=== PATIENT | female | born 1990 | race Caucasian/White ===

== ENCOUNTER 2017-07-16 09:16 | Emergency (ER) | payer MEDICAID ==
[~2017-07-16] VITALS: Ht 157.5 cm; Wt 59.0 kg
[~2017-07-16 09:16] MED LIST: PREN-129
[2017-07-16 09:59] LABS: Hematocrit 37.7 % (36.0-46.0); Hemoglobin 12.6 g/dL (12.2-16.2)
[2017-07-16 10:16] LABS: Urine Bilirubin Negative (Negative); Urine Blood 2+ /uL (Negative); Urine Color Yellow (Yellow); Urine Glucose Normal (Normal); Urine Ketone Negative (Negative); Urine Mucus FEW (None Seen); Urine Nitrite Negative (Negative); Urine RBC 4 /hpf (0 - 4); Urine Squamous Epithelial Cell FEW /hpf (<5); Urine Urobilinogen Normal (Negative); Urine pH 6.5 (5.0-8.0)
[2017-07-16 14:22] VITALS: BP 125/85
== END 2017-07-16 15:10 | disposition home or self-care (01) ==
LOC: ER 09:16
DX: O20.0 Threatened abortion (principal); O23.41 Unspecified infection of urinary tract in pregnancy, first trimester; Z3A.01 Less than 8 weeks gestation of pregnancy
CPT/HCPCS: 36415; 76801; 76817; 81001; 84702; 85014; 85018

== ENCOUNTER 2023-07-13 20:17 | Emergency (ER) | payer MEDICAID ==
[~2023-07-13] VITALS: Ht 157.5 cm; Wt 59.8 kg
[2023-07-13] MEDS ORDERED: FAMOTIDINE 20 MG TAB PO ONE (21:45)
[2023-07-13] MEDS ORDERED: ALBUTEROL MEDNEB 2.5 mg/3ml NEB NEB ONE (21:45)
[2023-07-13] MEDS ORDERED: IPRATROPIUM BROM 0.5 MG/2.5ML INH SOL NEB ONE (21:45)
[2023-07-13] MEDS ORDERED: diphenhdrAMINE HCL 50 MG/1 ML VL IM ONE (21:45)
[2023-07-13] MEDS ORDERED: DexAMETHasone SOD PHOS 10MG/1ML VIAL INJ IM ONE (21:45)
[2023-07-13] MEDS ORDERED: guaiFENesin-CODEINE Liq 5 ML UD PO ONE (21:45)
[2023-07-13] MEDS ORDERED: ALBUTEROL MEDNEB 2.5 mg/3ml NEB ONE (21:55)
[2023-07-13] MEDS ORDERED: IPRATROPIUM BROM 0.5 MG/2.5ML INH SOL ONE (21:55)
[2023-07-13] MEDS ORDERED: TETANUS-DIPTH-ACEL PERTUSSIS 0.5ML SYR Tdap IM ONE (22:00)
[2023-07-13] MEDS ORDERED: DOXY-346 PO (22:10)
[2023-07-13 23:00] VITALS: BP 116/58; PULSE 73; RESP 16; TEMP 98.1; O2SAT 100
== END 2023-07-13 22:11 | disposition home or self-care (01) ==
LOC: ER 20:17
DX: S61.412A Laceration without foreign body of left hand, initial encounter (principal); M19.90 Unspecified osteoarthritis, unspecified site; Z79.899 Other long term (current) drug therapy; W26.8XXA Contact with other sharp object(s), not elsewhere classified, initial encounter; Y93.89 Activity, other specified; Y92.89 Other specified places as the place of occurrence of the external cause; Y99.8 Other external cause status
CPT/HCPCS: 12001

== ENCOUNTER 2023-12-30 14:50 | Inpatient (IN) | payer MEDICAID ==
[~2023-12-30] VITALS: Ht 154.9 cm; Wt 65.8 kg
[~2023-12-30 14:50] MED LIST changes: +DOXY-346 PO
[2023-12-30 16:01] LABS: Basophils # (auto) 0.1 10 ^3/uL (0-0.2); Basophils % (auto) 0.5 % (0.0-2.0); Eosinophils # (auto) 0.1 10 ^3/uL (0-0.8); Eosinophils % (auto) 0.6 % (0.0-7.0); Hematocrit 37.5 % (36.0-46.0); Hemoglobin 12.4 g/dL (12.2-16.2); Lymphocytes # (auto) 1.9 10 ^3/uL (0.4-5.4); Lymphocytes % (auto) 18.3 % (10.0-50.0); Mean Corpuscular Hemoglobin 28.2 pg (28.0-32.0); Mean Corpuscular Hgb Conc. 33.2 g/dL (32.0-36.0); Mean Corpuscular Volume 84.9 fL (80.0-100.0); Monocytes # (auto) 0.4 10 ^3/uL (0-1.3); Monocytes % (auto) 3.9 % (0.0-12.0); Neutrophils # (auto) 8.1 10 ^3/uL (1.6-8.6); Neutrophils % (auto) 76.7 % (37.0-80.0); Nucleated Red Blood Cells % 0.1 %; Red Blood Cells 4.42 10^6/uL (4.0-5.20); Red Cell Distribution Width 14.2 % (11.8-14.3); White Blood Cell 10.6 10^3/uL (4.4-10.8)
[2023-12-30 16:16] LABS: Alanine Aminotransferase 10 U/L (7-40); Albumin 4.1 g/dL (3.2-4.8); Alkaline Phosphatase 77 U/L (46-116); Anion Gap 7 (5-15); Aspartate Aminotransferase 24 U/L (13-40); BUN/Creatinine Ratio 13.9 (10.0-20.0); Blood Urea Nitrogen 10 mg/dL (9-23); Calcium 9.1 mg/dL (8.5-10.1); Carbon Dioxide 27 mmol/L (20-30); Chloride 105 mmol/L (98-107); Glucose 100 mg/dL (74-106); Potassium 3.8 mmol/L (3.5-5.1); Sodium 139 mmol/L (136-145); Total Protein 7.4 g/dL (5.7-8.2)
[2023-12-30 16:17] LABS: Bilirubin, Total 0.2 mg/dL (0.2-1.0)
[2023-12-30 17:13] LABS: Urine Bacteria None Seen /hpf (None Seen)
[2023-12-30 17:42] LABS: Urine Amorphous Crystal FEW /hpf (None Seen); Urine Blood 3+ /uL (Negative); Urine Clarity Ex.Turbid (Clear); Urine Color Light-Brown (Yellow); Urine Mucus FEW (None Seen); Urine Protein, UAD TRACE (Negative); Urine Specific Gravity 1.021 (1.001-1.035); Urine Urobilinogen Normal (Negative); Urine WBC 32 /hpf (0 - 5); Urine WBC Clumps PRESENT /hpf (None Seen); Urine pH 6.5 (5.0-9.0)
[2023-12-30 18:00] LABS: INR 1.04 (0.9-1.15); Partial Thromboplastin Time 24.3 SEC (24.5-34.5)
[2023-12-30] MEDS ORDERED: HYDROmorphone HCL 2 MG/ML VL/or syr IV PRN ×4 (18:00→20:45)
[2023-12-30] MEDS ORDERED: ONDANSETRON HCL 4 MG/2 ML VIAL IV PRN ×3 (18:00→20:45)
[2023-12-30] MEDS ORDERED: LACTATED RINGER'S 1,000 ML IV ONE (18:00)
[2023-12-30] MEDS ORDERED: HYDROcodone-ACET 5/325MG TAB PO PRN (18:00)
[2023-12-30] MEDS ORDERED: DOCU-94 PO (18:30)
[2023-12-30] MEDS ORDERED: HYDR-4902 PO (18:30)
[2023-12-30] MEDS ORDERED: IBUP-1456 PO (18:30)
[2023-12-30] MEDS ORDERED: ZOFR4T PO (18:30)
[2023-12-30] MEDS: ceFAZolin 1GM/50ML 100 ML IV ONE (18:48)
[2023-12-30] MEDS: GABAPENTIN 400 MG CAP ONE (18:55)
[2023-12-30] MEDS: CELECOXIB 100 MG CAP ONE (18:55)
[2023-12-30] MEDS: ACETAMINOPHEN IV 100 ML IV ONE (18:55)
[2023-12-30] MEDS ORDERED: LIDOCAINE 2% (LOCAL ANESTH.) PF 5ml SDV ONE ×2 (18:58→19:13)
[2023-12-30] MEDS ORDERED: SUGAMMADEX 200mg/2ml Vial (100MG/ML) IV ONE (18:58)
[2023-12-30] MEDS ORDERED: KETAMINE 50mg/ML 1ml syringe ONE (18:59)
[2023-12-30] MEDS ORDERED: fentaNYL CITRATE 100 MCG/2 ML VL ONE (18:59)
[2023-12-30] MEDS: ACETAMINOPHEN IV 1000 MG/100ML (10MG/ML) IV ONE (19:00)
[2023-12-30] MEDS: CELECOXIB 100 MG CAP PO ONE (19:00)
[2023-12-30] MEDS: GABAPENTIN 400 MG CAP PO ONE (19:00)
[2023-12-30] MEDS ORDERED: ROCURONIUM 10MG/ML 10ML VIAL IV ONE (19:02)
[2023-12-30] MEDS ORDERED: PROPOFOL 10 MG/ML 20 ML IV ONE (19:13)
[2023-12-30] MEDS ORDERED: GLYCOPYRROLATE 0.2 MG/ML 1ML VIAL ONE (19:13)
[2023-12-30] MEDS ORDERED: KETOROLAC TROMETH 30 MG/ML 1ML VIAL ONE (19:13)
[2023-12-30] MEDS ORDERED: ONDANSETRON HCL 4 MG/2 ML VIAL ONE (19:13)
[2023-12-30] MEDS ORDERED: DexAMETHasone SOD PHOS 10MG/1ML VIAL INJ ONE (19:13)
[2023-12-30] MEDS: BUPIVACAINE 0.5% P/F INJ 10 ML VIAL ONE (20:05)
[2023-12-30] MEDS ORDERED: LACTATED RINGER'S 1,000 ML IV SCH (20:15)
[2023-12-30] MEDS ORDERED: RHO (D) IMMUNE GLOBULIN 300 MCG INJ IM PRN (20:15)
[2023-12-30] MEDS ORDERED: BISACODYL 10 MG RECT SUPP PR PRN (20:15)
[2023-12-30 20:22] VITALS: PULSE 73; RESP 13; O2SAT 100
[2023-12-30] MEDS ORDERED: fentaNYL CITRATE 100 MCG/2 ML VL IV PRN (20:45)
[2023-12-30] MEDS ORDERED: LABETALOL HCL 5 MG/ML 4ML SYRINGE IV PRN (20:45)
[2023-12-30] MEDS ORDERED: ePHEDrine SULFATE 50 MG/ML AMP IV PRN (20:45)
[2023-12-30] MEDS ORDERED: NALOXONE HCL 0.4 MG/ML VIAL IV PRN (20:45)
[2023-12-30] MEDS ORDERED: FLUMAZENIL 0.1 MG/ML INJ 10ML MDV IV PRN (20:45)
[2023-12-30] MEDS ORDERED: hydrALAZINE HCL 20 MG/ML VL IV PRN (20:45)
[2023-12-30] MEDS: oxyCODONE HCL 5MG TAB PO PRN (21:24)
[2023-12-30] MEDS ORDERED: ceFAZolin 1GM/50ML 50 ML IV SCH (22:00)
[2023-12-30 23:03] LABS: Basophils # (auto) 0 10 ^3/uL (0-0.2); Basophils % (auto) 0.2 % (0.0-2.0); Eosinophils # (auto) 0 10 ^3/uL (0-0.8); Hemoglobin 11.5 g/dL (12.2-16.2); Lymphocytes # (auto) 0.8 10 ^3/uL (0.4-5.4); Lymphocytes % (auto) 6.7 % (10.0-50.0); Mean Corpuscular Hemoglobin 27.8 pg (28.0-32.0); Mean Corpuscular Hgb Conc. 32.8 g/dL (32.0-36.0); Mean Corpuscular Volume 84.5 fL (80.0-100.0); Monocytes # (auto) 0.1 10 ^3/uL (0-1.3); Monocytes % (auto) 0.9 % (0.0-12.0); Neutrophils # (auto) 11.1 10 ^3/uL (1.6-8.6); Neutrophils % (auto) 92.2 % (37.0-80.0); Red Blood Cells 4.14 10^6/uL (4.0-5.20); White Blood Cell 12.1 10^3/uL (4.4-10.8)
[2023-12-30] MEDS: SODIUM CHLOR 0.9% PF (SALINE LOCK) 10ML VIAL/SYR IV SCH (23:10)
[2023-12-30 23:24] VITALS: BP 145/68; PULSE 78; RESP 20; TEMP 97.6; O2SAT 98
[2023-12-31] MEDS: LACTATED RINGER'S 1,000 ML IV SCH (00:10)
[2023-12-31 01:00] VITALS: BP 109/59; PULSE 89; RESP 18; TEMP 97.9; O2SAT 97
[2023-12-31] MEDS: ceFAZolin 1GM/50ML 50 ML IV SCH (03:36)
[2023-12-31] MEDS ORDERED: LETR2.5T PO (03:58)
[2023-12-31] MEDS ORDERED: PREN-96 PO (03:58)
[2023-12-31 05:00] VITALS: BP 99/56; PULSE 82; RESP 20; TEMP 97.5; O2SAT 95
[2023-12-31 06:28] LABS: Basophils # (auto) 0 10 ^3/uL (0-0.2); Eosinophils # (auto) 0 10 ^3/uL (0-0.8); Hematocrit 35.6 % (36.0-46.0); Hemoglobin 11.7 g/dL (12.2-16.2); Lymphocytes # (auto) 1.1 10 ^3/uL (0.4-5.4); Mean Corpuscular Hemoglobin 27.7 pg (28.0-32.0); Mean Corpuscular Hgb Conc. 32.7 g/dL (32.0-36.0); Mean Corpuscular Volume 84.8 fL (80.0-100.0); Monocytes # (auto) 0.1 10 ^3/uL (0-1.3); Monocytes % (auto) 1.1 % (0.0-12.0); Neutrophils # (auto) 9.6 10 ^3/uL (1.6-8.6); Neutrophils % (auto) 88.9 % (37.0-80.0); Red Cell Distribution Width 14.2 % (11.8-14.3); White Blood Cell 10.8 10^3/uL (4.4-10.8)
[2023-12-31] MEDS: HYDROcodone-ACET 10/325MG TAB PO PRN (06:29)
[2023-12-31 08:00] VITALS: BP 103/65; PULSE 96; RESP 18; TEMP 97.6
[2023-12-31] MEDS: PANTOPRAZOLE 40 MG/10 ML VIAL INJ IV SCH (09:35)
[2023-12-31] MEDS: DOCUSATE CALCIUM 240 MG CAP PO SCH (09:35)
== END 2023-12-31 11:40 | disposition home or self-care (01) | DRG 547 ==
LOC: ER 14:50 → OVERFLOW 17:58 → CENTRAL 22:40
PROVIDERS: ADMIT Internal Medicine; ATTEND Internal Medicine
PROC: 10T24ZZ Resection of Products of Conception, Ectopic, Percutaneous Endoscopic Approach (ICD-10-PCS; principal; 2023-12-30 19:04)
DX: O00.102 Left tubal pregnancy without intrauterine pregnancy (principal); Z3A.08 8 weeks gestation of pregnancy
CPT/HCPCS: 36415; 76801; 76817; 80053; 81001; 84702; 85025; 85610; 85730; 86850; 86900; 86901; C9113; G0378; J0131; J1100; J1885; J2001; J2405; J2704; J3490

== ENCOUNTER 2024-05-21 18:30 | Emergency (ER) | payer MEDICAID ==
[~2024-05-21 18:30] MED LIST changes: +DOCU-94 PO; +HYDR-4902 PO; +IBUP-1456 PO; +LETR2.5T PO; +PREN-96 PO; +ZOFR4T PO
[2024-05-21 22:00] VITALS: BP 100/55; PULSE 69; RESP 18; O2SAT 98
[2024-05-21 23:02] LABS: COVID19 ANTIGEN SOFIA FIA NEGATIVE (NEGATIVE); Rapid Influenza A Negative (Negative); Rapid Influenza B Negative (Negative)
[2024-05-21 23:06] VITALS: TEMP 97.9
[2024-05-21] MEDS: ACETAMINOPHEN 500 MG TAB PO ONE (23:06)
== END 2024-05-22 00:02 | disposition home or self-care (01) ==
LOC: ER 18:30
DX: O98.512 Other viral diseases complicating pregnancy, second trimester (principal); B34.9 Viral infection, unspecified; M19.90 Unspecified osteoarthritis, unspecified site; Z3A.14 14 weeks gestation of pregnancy; Z79.899 Other long term (current) drug therapy; Z20.822 Contact with and (suspected) exposure to COVID-19
CPT/HCPCS: 36415; 87426; 87804

== ENCOUNTER 2024-12-19 10:30 | Emergency (ER) | payer BC, MEDICAID ==
[~2024-12-19] VITALS: Ht 157.5 cm; Wt 69.0 kg
[2024-12-19 11:41] VITALS: BP 123/83; PULSE 83; RESP 16; TEMP 98.3; O2SAT 96
[2024-12-19] MEDS ORDERED: CEPH500T PO (12:22)
--- NOTE | 2024-12-19 12:22 | ED.PDOC ---
History of Present Illness(SKN HPI Comments 34-year-old presents for a wound check. Had a recent four weeks ago. Steri-Strips were removed three days ago and patient noticed a mild white discharge from one of the incisions that resolved yesterday. Concerned about a possible infection. Denies fevers chills nausea vomiting diarrhea. Denies any drainage from the affected side at this time Chief Complaint: Wound Check Time Seen by MD: 10:52 Primary Care Provider: JOSIE History of Present Illness: Nurses Notes, Medications, Allergies Allergies: Coded Allergies: NO KNOWN ALLERGIES (Unverified , 03/05/12) Home Meds Active Scripts Ondansetron Odt 4MG Tab (ZOFRAN PO) 4 Mg Tb, 4 MG PO Q4HPRN PRN for 5 Days, #25 TAB ODT TAB-DISSOLVE IN MOUTH, THEN SWALLOW Prov:SUNSHINE JAIMES DO 12/30/23 Ibuprofen (Ibuprofen) 800 Mg Tab, 800 MG PO TID PRN for 4 Days, #12 TAB Prov:SUNSHINE JAIMES DO 12/30/23 Hydrocodone-Acetaminophen (Hydrocodone Bitartrate/AC 5-325 mg) 1 Tab Tab, 1 TAB PO Q6HPRN PRN for 7 Days, #28 TAB Prov:SUNSHINE JAIMES DO 12/30/23 Docusate Sodium (Colace) 100 Mg Cap, 1 CAP PO BID, #60 CAP 2 Refills Prov:SUNSHINE JAIMES DO 12/30/23 Doxycycline (Monohydrate) (Doxycycline) 100 Mg Tab, 1 TAB PO BID for 10 Days, #20 TAB Prov:JUAN MIGUEL TRUONG COST CLERK 07/13/23 Reported Medications Vit W/ Ferrous Fumara ( One Daily) Daily Tab, 1 TAB PO DAILY, #90 TAB 3 Refills 12/31/23 Letrozole (Femara) 2.5 Mg Tab, 2.5 MG PO DAILY, TAB 12/31/23 Vit W/ Ferrous Fumara () Tab 03/05/12 Information Source: Patient Mode of Arrival: Ambulatory Past Medical History PAST MEDICAL HISTORY: Arthritis Surgical History: Denies all surgeries COMMODITY BUYER History: No Pertinent COMMODITY BUYER History Family History Family History: Reviewed,noncontributory to illness Social History Smoker: Non-Smoker Alcohol: Denies ETOH Use Drugs: Denies Drug Use Lives In: Home All Other Systems: Reviewed and Negative (per hpi) Physical Exam General Appearance: No Apparent Distress, Normal HEENT: Normal ENT Inspection, Pharynx Normal, TMs Normal Neck: Full Range of Motion, Non-Tender, Normal, Normal Inspection Respiratory: Chest Non-Tender, Lungs Clear, No Accessory Muscle Use, No Respiratory Distress, Normal Breath Sounds Cardiovascular: No Edema, No JVD, No Murmur, No Gallop, Normal Peripheral Pulses, Regular Rate/Rhythm Breast Exam: Deferred Gastrointestinal: No Organomegaly, Non Tender, No Pulsatile Mass, Normal Bowel Sounds, Soft Genitalia: Deferred Pelvic: Deferred Rectal: Deferred Extremities: No calf tenderness, Normal capillary refill, Normal inspection, Normal range of motion, Non-tender, No pedal edema Musculoskeletal : Apperance: Normal Neurologic: Alert, specialized language instructor II-XII nml as Tested, No Motor Deficits, Normal Affect, Normal Mood, No Sensory Deficits Cerebellar Function: Normal Reflexes: Normal Skin: Dry, Normal Color, Warm Lymphatic: No Adenopathy Was a procedure done? Was a procedure done?: No Differential Diagnosis (INTG) Differential Diagnosis: Cellulitis, Other X-Ray, Labs, Meds, VS Vital Signs Date Time Temp Pulse Resp B/P (MAP) Pulse Ox O2 Delivery O2 Flow Rate FiO2 12/19/24 11:41 83 16 96 Room Air 12/19/24 11:41 98.3 83 18 123/83 (96) 98 98.3 12/19/24 10:55 98.0 88 16 123/84 (97) 97 98.0 X-Ray, Labs, Meds, VS Comment The ROS and physical examination there were no red flags. No suspicion for high cellulitis at this time. Based on show decision-making patient agreed to empiric treatment and will follow up with Ob Strict return precautions discussed Time of 1ST Reevaluation: 12:21 Reevaluation 1ST: Improved Patient Education/Counseling: Diagnosis, Treatment Family Education/Counseling: Diagnosis, Treatment Departure 1 Departure Time of Disposition: 12:21 Impression: Primary Impression: Visit for wound check Disposition: HOME / SELF CARE / HOMELESS Condition: Stable e-Prescriptions Cephalexin Monohydrate (Cephalexin) 500 Mg Tab 1 TAB PO QID for 5 Days, #28 TAB 0 Refills Prov: HERBERT LANDRY COST CLERK 12/19/24 Discharged With: Self Critical Care Note Critical Care Time?: No Stability Stability form required: No Heart Score Heart Score: Heart Score Response (Comments) Value History N/A 0 EKG N/A 0 Age N/A 0 Risk Factors N/A 0 Troponin N/A 0 Total 0 HERBERT LANDRY NP Dec 19, 2024 12:22
== END 2024-12-19 12:27 | disposition home or self-care (01) ==
LOC: ER 10:30
DX: Z48.817 Encounter for surgical aftercare following surgery on the skin and subcutaneous tissue (principal); M19.90 Unspecified osteoarthritis, unspecified site; Z79.811 Long term (current) use of aromatase inhibitors; Z79.899 Other long term (current) drug therapy